=== PATIENT | female | born 1960 | race Caucasian/White ===

== ENCOUNTER → 2023-11-27 07:36 | Outpatient (REF) | payer OTHER, SELFPAY | LOC: HWRAD 07:36 | PROVIDERS: ATTENDING PHYSICIAN Internal Medicine Critical Care Medicine; FAMILY PHYSICIAN Internal Medicine | DX: R93.89 Abnormal findings on diagnostic imaging of other specified body structures (principal); J47.9 Bronchiectasis, uncomplicated | CPT/HCPCS: 71250 ==

== ENCOUNTER → 2023-12-11 07:20 | Outpatient (REF) | payer OTHER, SELFPAY | LOC: RAD 07:20 | PROVIDERS: ATTENDING PHYSICIAN Nurse Practitioner; FAMILY PHYSICIAN Internal Medicine | DX: R10.30 Lower abdominal pain, unspecified (principal); R05.1 Acute cough | CPT/HCPCS: 76830; 76856 ==

== ENCOUNTER → 2024-01-09 06:40 | Outpatient (REF) | payer OTHER, SELFPAY | LOC: HWRAD 06:40 | PROVIDERS: ATTENDING PHYSICIAN Nurse Practitioner | DX: R10.11 Right upper quadrant pain (principal) | CPT/HCPCS: 76700 ==

== ENCOUNTER → 2024-02-05 07:47 | Outpatient (REF) | payer OTHER, SELFPAY | LOC: WDC 07:47 | PROVIDERS: ATTENDING PHYSICIAN Nurse Practitioner | DX: Z12.31 Encounter for screening mammogram for malignant neoplasm of breast (principal) | CPT/HCPCS: 77063; 77067 ==

== ENCOUNTER → 2024-03-19 19:06 | Outpatient (REF) | payer OTHER, SELFPAY | LOC: RAD 19:06 | PROVIDERS: ATTENDING PHYSICIAN Nurse Practitioner | DX: J30.1 Allergic rhinitis due to pollen (principal); B49 Unspecified mycosis | CPT/HCPCS: 71046 ==

== ENCOUNTER → 2024-05-27 06:50 | Outpatient (REF) | payer OTHER, SELFPAY | LOC: HWRAD 06:50 | PROVIDERS: ATTENDING PHYSICIAN Internal Medicine Critical Care Medicine; FAMILY PHYSICIAN Internal Medicine | DX: R91.8 Other nonspecific abnormal finding of lung field (principal); R93.89 Abnormal findings on diagnostic imaging of other specified body structures | CPT/HCPCS: 71250 ==

== ENCOUNTER → 2024-09-02 07:10 | Outpatient (REF) | payer OTHER, SELFPAY | LOC: HWRAD 07:10 | PROVIDERS: ATTENDING PHYSICIAN Internal Medicine Critical Care Medicine; FAMILY PHYSICIAN Nurse Practitioner; REFERRING PHYSICIAN Internal Medicine Infectious Disease | DX: R91.8 Other nonspecific abnormal finding of lung field (principal); R93.89 Abnormal findings on diagnostic imaging of other specified body structures | CPT/HCPCS: 71250 ==

== ENCOUNTER → 2024-09-30 14:49 | Outpatient (REF) | payer OTHER, SELFPAY | LOC: WDC 14:49 | PROVIDERS: ATTENDING PHYSICIAN Hospitalist; FAMILY PHYSICIAN Nurse Practitioner | DX: R92.8 Other abnormal and inconclusive findings on diagnostic imaging of breast (principal); R93.89 Abnormal findings on diagnostic imaging of other specified body structures | CPT/HCPCS: 76642 ==

== ENCOUNTER → 2024-12-23 10:16 | Outpatient (REF) | payer OTHER, SELFPAY | LOC: RAD 10:16 | PROVIDERS: ATTENDING PHYSICIAN Student in an Organized Health Care Education/Training Program; FAMILY PHYSICIAN Internal Medicine | DX: R05.1 Acute cough (principal) | CPT/HCPCS: 71046 ==

== ENCOUNTER → 2025-02-10 06:57 | Outpatient (REF) | payer OTHER, SELFPAY | LOC: WDC 06:57 | PROVIDERS: ATTENDING PHYSICIAN Nurse Practitioner | DX: Z12.31 Encounter for screening mammogram for malignant neoplasm of breast (principal) | CPT/HCPCS: 77063; 77067 ==

== ENCOUNTER → 2025-03-17 07:03 | Outpatient (REF) | payer OTHER, SELFPAY | LOC: RCS 07:03 | PROVIDERS: ATTENDING PHYSICIAN Internal Medicine Cardiovascular Disease; FAMILY PHYSICIAN Nurse Practitioner | DX: R06.02 Shortness of breath (principal) | CPT/HCPCS: 93306 ==

== ENCOUNTER → 2025-03-24 11:30 | Outpatient (REF) | payer OTHER, SELFPAY | LOC: HWRAD 11:30 | PROVIDERS: ATTENDING PHYSICIAN Otolaryngology; FAMILY PHYSICIAN Nurse Practitioner | DX: J32.9 Chronic sinusitis, unspecified (principal) | CPT/HCPCS: 70486 ==

== ENCOUNTER → 2025-03-30 07:46 | Outpatient (REF) | payer OTHER, SELFPAY | LOC: HWRAD 07:46 | PROVIDERS: ATTENDING PHYSICIAN Internal Medicine Critical Care Medicine; FAMILY PHYSICIAN Nurse Practitioner | DX: R93.89 Abnormal findings on diagnostic imaging of other specified body structures (principal) | CPT/HCPCS: 71250 ==

== ENCOUNTER → 2025-03-31 07:54 | Outpatient (REF) | payer OTHER, SELFPAY | LOC: RCS 07:54 | PROVIDERS: ATTENDING PHYSICIAN Internal Medicine Cardiovascular Disease; FAMILY PHYSICIAN Nurse Practitioner | DX: R06.02 Shortness of breath (principal) | CPT/HCPCS: 78452; 93017; A9500 ==

== ENCOUNTER → 2025-07-21 11:12 | Outpatient (REF) | payer MEDICARE, OTHER, SELFPAY | LOC: REG 11:12 | PROVIDERS: REFERRING PHYSICIAN Internal Medicine | DX: B99.9 Unspecified infectious disease (principal); J47.9 Bronchiectasis, uncomplicated; J32.9 Chronic sinusitis, unspecified | CPT/HCPCS: 36415 ==

== ENCOUNTER 2025-08-11 06:23 | Day surgery (SDC) | payer MEDICARE, OTHER, SELFPAY | END 2025-08-11 13:47 | disposition home or self-care (01) | LOC: GI 06:23 | PROVIDERS: ATTENDING PHYSICIAN Internal Medicine | DX: Z12.11 Encounter for screening for malignant neoplasm of colon (principal); D12.2 Benign neoplasm of ascending colon; K64.9 Unspecified hemorrhoids; Z86.0101 Personal history of adenomatous and serrated colon polyps | CPT/HCPCS: 45385; 88305 ==

== ENCOUNTER → 2025-09-28 06:43 | Outpatient (REF) | payer MEDICARE, OTHER, SELFPAY | LOC: RAD 06:43 | PROVIDERS: ATTENDING PHYSICIAN Internal Medicine Critical Care Medicine; FAMILY PHYSICIAN Internal Medicine | DX: R09.89 Other specified symptoms and signs involving the circulatory and respiratory systems (principal); R53.83 Other fatigue; R05.3 Chronic cough | CPT/HCPCS: 71046 ==

== ENCOUNTER → 2025-10-20 10:17 | Outpatient (REF) | payer MEDICARE, OTHER, SELFPAY | LOC: REG 10:17 | PROVIDERS: ATTENDING PHYSICIAN Internal Medicine Critical Care Medicine; FAMILY PHYSICIAN Internal Medicine | DX: R53.83 Other fatigue (principal); R05.3 Chronic cough; J47.9 Bronchiectasis, uncomplicated | CPT/HCPCS: 87070; 87205 ==